=== PATIENT | male | born 1985 | race Two or more races ===

== ENCOUNTER 2023-03-27 01:39 | Emergency (ER) | payer OTHER ==
[~2023-03-27] VITALS: Ht 170.2 cm; Wt 69.9 kg
[2023-03-27] MEDS ORDERED: AMOX-430 PO (02:34)
[2023-03-27] MEDS ORDERED: AMOX/CLAVULANATE 875 MG TABLET ONE (02:38)
[2023-03-27] MEDS ORDERED: LIDOCAINE VISCOUS 2% UD 15 ML UDC ONE (02:46)
[2023-03-27] MEDS ORDERED: ONDANSETRON 4 MG TAB.RAPDIS ONE (02:46)
[2023-03-27] MEDS ORDERED: MAG HYDROX/AL HYDROX/SIMETH 30 ML UDC ONE (02:46)
[2023-03-27 02:56] VITALS: BP 134/65; TEMP 98.7; O2SAT 97
[2023-03-27] MEDS ORDERED: MAG HYDROX/AL HYDROX/SIMETH 30 ML UDC PO ONE (03:00)
[2023-03-27] MEDS ORDERED: ONDANSETRON 4 MG TAB.RAPDIS SL ONE (03:00)
[2023-03-27] MEDS ORDERED: AMOX/CLAVULANATE 875 MG TABLET PO ONE (03:00)
[2023-03-27] MEDS ORDERED: LIDOCAINE VISCOUS 2% UD 15 ML UDC MM ONE (03:00)
== END 2023-03-27 02:57 | disposition home or self-care (01) ==
LOC: ER 01:46
DX: J02.9 Acute pharyngitis, unspecified (principal); K21.9 Gastro-esophageal reflux disease without esophagitis; R11.0 Nausea
CPT/HCPCS: 99284; Q0162